=== PATIENT | male | born 1955 | race Caucasian/White ===

== ENCOUNTER 2017-01-30 05:18 | Day surgery (SDC) | payer MEDICARE, BC ==
[~2017-01-30 05:18] MED LIST: ACTOS30 M1 PO; ALBUTEROL INHALER; ANORO ELLIPTA1 EAC1 INH; ASPIRIN325 M3 PO; ATACAND32 MG; BUPROPION HCL100 M1 PO; CELEBREX200 M1 PO; CINNAMON PO; COZAAR100 M1 PO; CPAP; FENOFIBRATE160 MG PO; GLUCOPHAGE500 M3 PO; GLUCOSAMINE PO; GLUCOTROL10 M1 PO; IRON325 M3 PO; LIPITOR40 MG; MEDS; MULTIVITAMINS1 EAC6 PO; NASACORT10.8 M1; NICORETTE GUM; PROZAC10 M; TRAMADOL HCL E200 M1 PO; TRICOR200 MG; TYLENOL WITH C1 EACH PO; VITAMIN D32000 UNI3 PO; ZOCOR40 M1 PO; [UNRECOGNIZED DRUG - OTHER]; [UNRECOGNIZED DRUG - OTHER] PO
[2017-01-31 04:56] LABS: BASO % 0.1 % (0-2); EOS % 0.8 % (0-7); EOSINOPHIL ABSOLUTE COUNT 0.1 tho/cmm (0.0-0.7); HCT-HEMATOCRIT 25.1 % (36.0-53.5); HGB-HEMOGLOBIN 7.7 gm/dl (13.5-17.0); IMMATURE GRANULOCYTES ABSOLUTE 0.04 tho/cmm (0-0.03); IMMATURE GRANULOCYTES PERCENT 0.5 % (0-0.3); LYMPH % 15.5 % (20-45); LYMPH ABSOLUTE COUNT 1.4 tho/cmm (0.8-4.5); MCHC MEAN CORPUSCULAR HGB CONC 30.7 % (32.0-36.0); MCV (MEAN CELL VOLUME) 81.5 fl (82.0-96.0); MEAN PLATELET VOLUME 10.8 cmc (9.4-12.4); MONO % 7.9 % (0-12); MONOCYTE ABSOLUTE COUNT 0.7 tho/cmm (0.0-1.2); NEUTROPHIL ABSOLUTE COUNT 6.6 tho/cmm (1.6-8.0); NEUTROPHIL-AUTOMATED 6.6 tho/cmm (1.6-8.0); NEUTROPHILS % 75.2 % (40-80); PLATELET COUNT 175 tho/cmm (150-450); RED BLOOD COUNT 3.08 mil/cmm (4.40-5.70); RED CELL DISTRIBUTION WIDTH 15.9 % (12.4-16.4); WHITE BLOOD COUNT 8.8 tho/cmm (4.0-10.0)
[2017-01-31 05:13] LABS: ALBUMIN 3.1 g/dl (3.5-5.0); ANION GAP 14 mmol/L (0-20); BLOOD UREA NITROGEN 29 mg/dl (6-24); CALCIUM 8.5 mg/dl (8.5-10.5); CARBON DIOXIDE-VENOUS 25 mmol/L (22-32); CHLORIDE 104 mmol/l (96-110); CREATININE 1.28 mg/dl (0.60-1.30); GLUCOSE 179 mg/dL (70-110); PHOSPHOROUS 4.2 mg/dl (2.5-4.9); POTASSIUM 4.1 mmol/L (3.7-5.1); SODIUM 139 mmol/L (135-145); eGFR VALUE FOR BLACK 69 mL/Min
[2017-01-31] MEDS ORDERED: VENOFER200 MG/10 IV (12:29)
[2017-01-31] MEDS ORDERED: HYDROCODON-ACE1 EA16 PO (12:32)
[2017-01-31] MEDS ORDERED: MILK OF MAGNESIA PO (12:39)
[2017-01-31] MEDS ORDERED: MIRALAX17 G2 PO (12:40)
[2017-01-31] MEDS ORDERED: SENNA S TABLET1 EACH PO (12:41)
[2017-01-31] MEDS ORDERED: TYLENOL325 M2 PO (12:48)
[2017-01-31] MEDS ORDERED: IBUPROFEN200 M2 PO (12:49)
== END 2017-01-31 15:04 ==
LOC: SHSC 05:18 → ORW 07:24 → PACU 11:02 → 5WD 11:50
PROVIDERS: Family Medicine; Specialist
PROC: 0WUF4JZ Supplement Abdominal Wall with Synthetic Substitute, Percutaneous Endoscopic Approach (ICD-10-PCS; principal; 2017-01-30)
DX: K43.9 Ventral hernia without obstruction or gangrene (principal); I10 Essential (primary) hypertension; E66.01 Morbid (severe) obesity due to excess calories; E11.9 Type 2 diabetes mellitus without complications; J44.9 Chronic obstructive pulmonary disease, unspecified; G47.30 Sleep apnea, unspecified; K59.00 Constipation, unspecified; G89.29 Other chronic pain; M54.9 Dorsalgia, unspecified; Z99.89 Dependence on other enabling machines and devices; Z79.899 Other long term (current) drug therapy; Z98.890 Other specified postprocedural states; Z87.442 Personal history of urinary calculi; Z68.41 Body mass index [BMI] 40.0-44.9, adult
CPT/HCPCS: C1781; J0690; J1756; J1885; J2270; J2765; J3010